=== PATIENT | male | born 1980 | race Caucasian/White ===

== ENCOUNTER 2017-11-03 01:51 | Day surgery (SDC) | payer SELFPAY ==
[2017-11-03] MEDS ORDERED: ceFAZolin 1,000 MG VIAL IM ONE (01:56)
[2017-11-03] MEDS ORDERED: Diphtheria,Pertussis(Acell),Tetanus Vaccine 0.5 ML Syringe IM ONE (01:56)
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
[2017-11-03] MEDS ORDERED: Acetaminophen/HYDROcodone 325-7.5 MG Tab PO ONE (02:32)
[2017-11-03] MEDS ORDERED: Morphine 4 MG/ML Syringe IVPUSH ONE (02:41)
[2017-11-03] MEDS ORDERED: Sodium Chloride 0.9% 2.5 ML Syringe FLUSH PRN (02:41)
[2017-11-03] MEDS ORDERED: Sodium Chloride 0.9% 10 ML Syringe FLUSH PRN (02:41)
[2017-11-03] MEDS ORDERED: ceFAZolin 2 GM in Premix Bag 1 BAG IV ONE (02:41)
[2017-11-03] MEDS: Dextrose 5%-0.45% NaCl 1,000 ML IV SCH ×2 (02:52→12:13)
[2017-11-03] MEDS ORDERED: Ketorolac 30 MG/ML SDV IVPUSH ONE (03:21)
[2017-11-03] MEDS ORDERED: HYDROmorphone 2 MG/ML SDV IVPUSH ONE (03:21)
[2017-11-03] MEDS ORDERED: Bupivacaine 25%/EPINEPHrine/PF 30 ML ONE (07:28)
[2017-11-03] MEDS ORDERED: Lidocaine 2% 5 ML SDV ONE (07:30)
[2017-11-03] MEDS ORDERED: Ondansetron 4 MG/2 ML SDV ONE (07:30)
[2017-11-03] MEDS ORDERED: Midazolam 1 MG/ML 2 ML SDV ONE (07:31)
[2017-11-03] MEDS ORDERED: fentaNYL 250 MCG/5 ML SDV ONE (07:31)
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
[2017-11-03] MEDS ORDERED: ceFAZolin 1 GM Vial ONE (08:09)
[2017-11-03] MEDS ORDERED: fentaNYL 100 MCG/2 ML SDV IVPUSH PRN (08:18)
[2017-11-03] MEDS ORDERED: Propofol 200 MG/20 ML SDV ONE (09:16)
--- NOTE | 2017-11-03 09:32 | PCM.POSTAN ---
POST ANESTHESIA ASSESSMENT - MENTAL STATUS Mental Status: Alert, Oriented - RESPIRATORY Respiratory Status: Respiratory Rate WNL, Airway Patent, O2 Saturation Stable - CARDIOVASCULAR CV Status: Pulse Rate WNL, Blood Pressure Stable - GASTROINTESTINAL GI Status: No Symptoms - PAIN Pain Score: 0 - POST OP HYDRATION Hydration Status: Adequate & Stable - OBSERVATIONS Free Text/Narrative:: Pt stable and denies any pain or nausea at this time.
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
--- NOTE | 2017-11-03 10:35 | PCM48HPAN ---
Post Anesthesia Note - EVALUATION WITHIN 48HRS OF ANESTHETIC Vital Signs in Normal Range: Yes Patient Participated in Evaluation: Yes Respiratory Function Stable: Yes Airway Patent: Yes Cardiovascular Function Stable: Yes Hydration Status Stable: Yes Pain Control Satisfactory: Yes Nausea and Vomiting Control Satisfactory: Yes Mental Status Recovered: Yes Resp Rate: 11 - COMMENTS/OBSERVATIONS Free Text/Narrative:: no anesthesia problems
[2017-11-03] MEDS ORDERED: Ondansetron 4 MG Tab.DIS PO PRN (11:34)
[2017-11-03] MEDS ORDERED: Acetaminophen/HYDROcodone 325-5 MG Tab PO PRN (11:34)
[2017-11-03] MEDS: Cephalexin 500 MG Cap PO SCH ×2 (12:15→18:05)
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
== END 2017-11-03 19:25 | disposition home or self-care (01) ==
LOC: MW.ED 01:51 → MW.SDS 07:32 → MW.MS 11:20 → MW.SDS 19:25
PROVIDERS: ATTEND Plastic Surgery
DX: S62.306B Unspecified fracture of fifth metacarpal bone, right hand, initial encounter for open fracture (principal); F17.210 Nicotine dependence, cigarettes, uncomplicated; W34.00XA Accidental discharge from unspecified firearms or gun, initial encounter
CPT/HCPCS: 11012; 73130; 90471; 90715; 96361; 96365; 96375; 99285; A9270; J0690; J1170; J1885; J2250; J2270; J2405; J3010; J7042; 00400; 99284; J2704

== ENCOUNTER 2019-08-30 22:19 | Emergency (ER) | payer SELFPAY ==
--- NOTE | 2019-08-30 22:37 | EDM.PDOC ---
ED HPI GENERAL MEDICAL PROBLEM - General Chief Complaint: General Stated Complaint: MEDICAL CLEARANCE Time Seen by Provider: 08/30/19 22:25 Source of Information: Reports: Patient History Limitations: Reports: No Limitations - History of Present Illness INITIAL COMMENTS - FREE TEXT/NARRATIVE: Is a 39-year-old who presents to the emergency room for medical clearance. The please feel the patient could have been doing illicit drugs. Upon evaluation patient is calm and has normal vitals. Onset: Today Duration: Resolved Prior to Arrival Severity: Mild Improves with: Reports: None Worsens with: Reports: None Associated Symptoms: Reports: No Other Symptoms no pain Pain Score (Numeric/FACES): 0 - Related Data Allergies Allergy/AdvReac Type Severity Reaction Status Date / Time No Known Allergies Allergy Verified 08/30/19 22:27 Home Meds: Home Meds . [No Known Home Meds] 08/30/19 [History] Past Medical History - Past Health History Medical/Surgical History: Denies Medical/Surgical History HEENT History: Reports: None Cardiovascular History: Reports: None Respiratory History: Reports: None Gastrointestinal History: Reports: None Genitourinary History: Reports: None Musculoskeletal History: Reports: None Neurological History: Reports: None Psychiatric History: Reports: None Endocrine/Metabolic History: Reports: None Hematologic History: Reports: None Oncologic (Cancer) History: Reports: None Dermatologic History: Reports: None - Infectious Disease History Infectious Disease History: Reports: None - Past Surgical History Head Surgeries/Procedures: Reports: None Social & Family History - Family History Family Medical History: Noncontributory - Caffeine Use Caffeine Use: Reports: Soda ED ROS GENERAL - Review of Systems Review Of Systems: See Below Constitutional: Reports: No Symptoms HEENT: Reports: No Symptoms Respiratory: Reports: No Symptoms Cardiovascular: Reports: No Symptoms Endocrine: Reports: No Symptoms GI/Abdominal: Reports: No Symptoms : Reports: No Symptoms Musculoskeletal: Reports: No Symptoms Skin: Reports: No Symptoms Neurological: Reports: No Symptoms Psychiatric: Reports: No Symptoms Hematologic/Lymphatic: Reports: No Symptoms Immunologic: Reports: No Symptoms ED EXAM, GENERAL - Physical Exam Exam: See Below Exam Limited By: No Limitations General Appearance: Alert, WD/WN, No Apparent Distress Eye Exam: Bilateral Eye: PERRL Ears: Normal External Exam, Normal Canal, Hearing Grossly Normal, Normal TMs Nose: Normal Inspection, Normal Mucosa, No Blood Throat/Mouth: Normal Inspection, Normal Lips, Normal Teeth Head: Atraumatic, Normocephalic Neck: Normal Inspection, Supple, Non-Tender Respiratory/Chest: No Respiratory Distress, Lungs Clear, Normal Breath Sounds, No Accessory Muscle Use Cardiovascular: Normal Peripheral Pulses, No JVD GI/Abdominal: Normal Bowel Sounds, Soft, Non-Tender (Male) Exam: No Hernia, Normal Inspection Rectal (Males) Exam: Normal Exam, Normal Rectal Tone, Prostate Normal Back Exam: Normal Inspection, Full Range of Motion Extremities: Normal Inspection, Normal Range of Motion Neurological: Alert, Oriented, CN II-XII Intact, Normal Cognition Psychiatric: Normal Affect, Normal Mood Skin Exam: Warm, Dry, Intact Lymphatic: No Adenopathy Course - Vital Signs Last Recorded V/S: Last Vital Signs Temp 98.3 F 08/30/19 22:28 Pulse 118 H 08/30/19 22:28 Resp 18 08/30/19 22:28 BP 159/111 H 08/30/19 22:28 Pulse Ox 99 08/30/19 22:28 Departure - Departure Time of Disposition: 22:39 Disposition: Home, Self-Care 01 Condition: Good Clinical Impression: Medical clearance for incarceration - Discharge Information Referrals: PCP,None [Primary Care Provider] - Sepsis Event Note - Evaluation Sepsis Screening Result: No Definite Risk - Focused Exam Vital Signs: Vital Signs Temp Pulse Resp BP Pulse Ox 08/30/19 22:28 98.3 F 118 H 18 159/111 H 99 Date Exam was Performed: 08/30/19 Time Exam was Performed: 22:32
== END 2019-08-30 22:55 ==
LOC: MW.ED 22:19
DX: Z02.89 Encounter for other administrative examinations (principal)
CPT/HCPCS: 99282; 99283

== ENCOUNTER 2021-07-03 18:33 | Emergency (ER) | payer SELFPAY ==
--- NOTE | 2021-07-03 20:58 | CR ---
INDICATION: Chest pain TECHNIQUE: The upright PA view of the chest COMPARISON: None FINDINGS: The lungs are clear. There is no sizable pleural effusion or pneumothorax. The cardiomediastinal silhouette is normal. The visualized osseous structures are unremarkable. IMPRESSION: No acute intrathoracic process. Dictated by Maxi Gonzalez MD @ 07/03/2021 8:57:07 PM (Electronically Signed)
--- NOTE | 2021-07-03 22:18 | EDM.PDOC ---
ED HPI GENERAL MEDICAL PROBLEM - General Chief Complaint: Respiratory Problem Stated Complaint: SOB, COUGH, LUNG PAIN Time Seen by Provider: 07/03/21 22:02 Source of Information: Reports: Patient History Limitations: Reports: No Limitations - History of Present Illness INITIAL COMMENTS - FREE TEXT/NARRATIVE: 41-year-old male no past medical history presents for Covid-like symptoms. For the last week patient has noted shortness of breath, body aches, cough, nausea, diarrhea, loss of taste and smell. Symptoms seem to be worsening. He is not vaccinated. - Related Data Allergies Allergy/AdvReac Type Severity Reaction Status Date / Time No Known Allergies Allergy Verified 08/30/19 22:27 Home Meds: Home Meds . [No Known Home Meds] 08/30/19 [History] Past Medical History - Past Health History Medical/Surgical History: Denies Medical/Surgical History HEENT History: Reports: None Cardiovascular History: Reports: None Respiratory History: Reports: None Gastrointestinal History: Reports: None Genitourinary History: Reports: None Musculoskeletal History: Reports: None Neurological History: Reports: None Psychiatric History: Reports: None Endocrine/Metabolic History: Reports: None Hematologic History: Reports: None Oncologic (Cancer) History: Reports: None Dermatologic History: Reports: None - Infectious Disease History Infectious Disease History: Reports: None - Past Surgical History Head Surgeries/Procedures: Reports: None Social & Family History - Family History Family Medical History: No Pertinent Family History - Caffeine Use Caffeine Use: Reports: Soda ED ROS GENERAL - Review of Systems Review Of Systems: Comprehensive ROS is negative, except as noted in HPI. ED EXAM, GENERAL - Physical Exam Exam: See Below Exam Limited By: No Limitations General Appearance: Alert, WD/WN, No Apparent Distress Ears: Hearing Grossly Normal Throat/Mouth: Normal Voice, No Airway Compromise Head: Atraumatic, Normocephalic Respiratory/Chest: No Respiratory Distress, Lungs Clear, Normal Breath Sounds, No Accessory Muscle Use Cardiovascular: Normal Peripheral Pulses, Regular Rate, Rhythm GI/Abdominal: Soft, Non-Tender Extremities: Normal Inspection Neurological: Alert, Normal Cognition, Normal Gait Psychiatric: Normal Affect, Normal Mood Skin Exam: Warm, Dry, Intact, Normal Color Course - Vital Signs Last Recorded V/S: Last Vital Signs Temp 99.3 F 07/03/21 23:13 Pulse 72 07/03/21 22:15 Resp 19 07/03/21 22:15 BP 127/81 07/03/21 22:15 Pulse Ox 100 07/03/21 22:15 - Orders/Labs/Meds Labs: Laboratory Tests 07/03/21 Range/Units 22:20 SARS-CoV-2 RNA (JERMAINE) POSITIVE H (NEGATIVE) Meds: Medications Discontinued Medications Generic Name Dose Route Start Last Admin Trade Name Braeden PRN Reason Stop Dose Admin Acetaminophen 1,000 mg 07/03/21 22:20 07/03/21 23:13 Acetaminophen 500 Mg Tab PO 07/03/21 22:21 1,000 mg ONETIME ONE Administration Ibuprofen 600 mg 07/03/21 22:20 07/03/21 23:13 Ibuprofen 600 Mg Tab PO 07/03/21 22:21 600 mg ONETIME ONE Administration - Re-Assessments/Exams Free Text/Narrative Re-Assessment/Exam: 07/03/21 22:21 Chest x-ray is normal. Will get Covid swab. Will give Tylenol Motrin. 07/03/21 23:37 Covid test is positive. Chest x-ray is normal. Vital signs are unremarkable. Will discharge with Covid return precautions Departure - Departure Time of Disposition: 23:37 Disposition: Home, Self-Care 01 Condition: Good Clinical Impression: COVID-19 - Discharge Information Instructions: COVID-19: What to Do If You Are Sick- [facility] (11/12/2020) Referrals: PCP,None [Primary Care Provider] - Forms: ED Department Discharge Additional Instructions: Your Covid test is positive. You do not have evidence of Covid pneumonia on your chest x-ray. Your oxygen level was okay in the emergency department. Please stay at home and do not go out in public or interact with other people. This is highly contagious. Take Tylenol and Motrin for symptoms. The following information is given to patients seen in the emergency department who are being discharged to home. This information is to outline your options for follow-up care. We provide all patients seen in our emergency department with a follow-up referral. The need for follow-up, as well as the timing and circumstances, are variable depending upon the specifics of your emergency department visit. If you don't have a primary care physician on staff, we will provide you with a referral. We always advise you to contact your personal physician following an emergency department visit to inform them of the circumstance of the visit and for follow-up with them and/or the need for any referrals to a consulting specialist. The emergency department will also refer you to a specialist when appropriate. This referral assures that you have the opportunity for follow-up care with a specialist. All of these measure are taken in an effort to provide you with optimal care, which includes your follow-up. Under all circumstances we always encourage you to contact your private physician who remains a resource for coordinating your care. When calling for follow-up care, please make the office aware that this follow-up is from your recent emergency room visit. If for any reason you are refused follow-up, please contact the [facility] Emergency Department at and asked to speak to the emergency department charge nurse. Please follow up with your primary care physician. If you do not have a primary care physician, see below: [facility] [address] [place] [id number] [facility] [address] [place] [id number] [facility] [address] [place] [id number] Sepsis Event Note (ED) - Focused Exam Vital Signs: Vital Signs Temp Temp Pulse Resp BP Pulse Ox 07/03/21 23:13 99.3 F 07/03/21 22:15 101.6 F H 72 19 127/81 100
[2021-07-03] MEDS ORDERED: Ibuprofen 600 MG Tab PO ONE (22:20)
[2021-07-03] MEDS ORDERED: Acetaminophen 500 MG Tab PO ONE (22:20)
== END 2021-07-03 23:50 | disposition home or self-care (01) ==
LOC: MW.ED 18:33
DX: U07.1 COVID-19 (principal)
CPT/HCPCS: 71045; 87635; 99283; A9270; U0002

== ENCOUNTER 2021-11-11 12:24 | Observation (INO) | payer SELFPAY ==
[2021-11-11] MEDS ORDERED: Sodium Chloride 0.9% 2.5 ML Syringe FLUSH PRN ×2 (12:25)
[2021-11-11] MEDS ORDERED: Sodium Chloride 0.9% 10 ML Syringe FLUSH PRN ×2 (12:25)
[2021-11-11] MEDS ORDERED: Diphtheria,Pertussis(Acell),Tetanus Vaccine 0.5 ML Syringe IM ONE (12:25)
[2021-11-11] MEDS ORDERED: Sodium Chloride 0.9% 1,000 ML IV ONE (12:25)
[2021-11-11] MEDS ORDERED: ceFAZolin 1 GM in Premix Bag 1 BAG IV ONE (12:25)
[2021-11-11] MEDS ORDERED: fentaNYL 50 MCG/ML SDV IVPUSH ONE (12:29)
[2021-11-11 13:09] LABS: BLOOD UREA NITROGEN,BUN 14 mg/dL (7.0-18.0); CARBON DIOXIDE,CO2 22.8 mmol/L (21.0-32.0); CHLORIDE,CL 98 mmol/L (98-107); GLUCOSE RANDOM 216 mg/dL (74-106); LIPASE 32 U/L (73-393); POTASSIUM,K 3.2 mmol/L (3.5-5.1); SODIUM,NA 135 mmol/L (136-148)
[2021-11-11] MEDS ORDERED: Lidocaine 1% with EPINEPHrine 1:100,000 10 ML MDV INJECT ONE ×2 (14:03→14:05)
[2021-11-11] MEDS ORDERED: Lactated Ringers 1,000 ML IV STA (15:32)
[2021-11-11] MEDS ORDERED: Naloxone 0.4 MG/ML SDV IVPUSH STA (16:04)
[2021-11-11] MEDS ORDERED: Acetaminophen 325 MG Tab PO PRN (17:35)
[2021-11-11] MEDS ORDERED: Acetaminophen/oxyCODONE 325-5 MG Tab PO PRN (17:39)
[2021-11-11] MEDS: Lactated Ringers 1,000 ML IV SCH (17:59)
[2021-11-11] MEDS ORDERED: Iopamidol 755 MG/ML 500 ML Multipack Bottle IVPUSH ONE (18:06)
[2021-11-12] MEDS: Lactated Ringers 1,000 ML IV SCH (04:41)
== END 2021-11-12 12:15 | disposition home or self-care (01) ==
LOC: MW.ED 12:24 → MW.MS 17:09 → MERGE 17:09 → MW.MS 18:51
PROVIDERS: ADMIT Surgery; ATTEND Surgery
DX: S51.032A Puncture wound without foreign body of left elbow, initial encounter (principal); S21.132A Puncture wound without foreign body of left front wall of thorax without penetration into thoracic cavity, initial encounter; D62 Acute posthemorrhagic anemia; Z20.822 Contact with and (suspected) exposure to COVID-19; X58.XXXA Exposure to other specified factors, initial encounter
CPT/HCPCS: 12005; 36415; 71045; 71260; 74177; 80053; 80305; 80307; 81001; 82947; 83690; 85014; 85018; 85025; 85610; 86850; 86900; 86901; 87635; 90471; 90715; 93005; 96365; 96375; 99285; G0378; J0690; J2310; J3010; J7030; J7120; Q9967; U0002